=== PATIENT | female | born 1970 | race Caucasian/White ===

== ENCOUNTER 2020-06-27 12:42 | Emergency (ER) | payer OTHER, BC ==
[~2020-06-27] VITALS: Ht 167.6 cm; Wt 106.6 kg
[~2020-06-27 12:42] MED LIST: ACYC800 PO; ATOR10; CRUTCH3 USE; CRUTCH4 USE; GLUC500; HYDACE5 PO; IBUP600; IBUP600 PO; LEVSOD125; LEVSOD125 PO; MULVITA; NAPR550 PO; Nix Lice Treatm59 ML TOP; OXYACE5T PO; PROM25 PO; Pepcid20 MG PO; Pepcid40 MG PO; Permethrin60 GM TP; Prednisone10 MG PO; Prednisone20 MG PO; RANI150; RXNAPNA550 PO; ZESTORETIC 20-121 EA; Zofran8 MG PO
== END 2020-06-27 14:30 | disposition home or self-care (01) ==
LOC: ER 12:42
DX: S16.1XXA Strain of muscle, fascia and tendon at neck level, initial encounter (principal); S09.90XA Unspecified injury of head, initial encounter; E03.9 Hypothyroidism, unspecified; Z87.891 Personal history of nicotine dependence; Z88.5 Allergy status to narcotic agent; Z79.899 Other long term (current) drug therapy; V49.40XA Driver injured in collision with unspecified motor vehicles in traffic accident, initial encounter; Y92.410 Unspecified street and highway as the place of occurrence of the external cause
CPT/HCPCS: 99284

== ENCOUNTER → 2020-08-22 | Outpatient (CLI) | payer OTHER, BC ==
[2020-08-24 14:15] LABS: CORONAVIRUS (COVID19) CSH-NRL Negative (Negative)
== END | disposition home or self-care (01) ==
LOC: LAB SHORT 13:27
PROVIDERS: Chiropractor
DX: R06.00 Dyspnea, unspecified (principal); Z20.828 Contact with and (suspected) exposure to other viral communicable diseases
CPT/HCPCS: U0003

== ENCOUNTER 2022-09-05 16:20 | Emergency (ER) | payer OTHER, BC ==
[~2022-09-05] VITALS: Ht 167.6 cm; Wt 97.5 kg
== END 2022-09-05 20:16 | disposition home or self-care (01) ==
LOC: ER 16:20
DX: S01.21XA Laceration without foreign body of nose, initial encounter (principal); M25.531 Pain in right wrist; M79.642 Pain in left hand; E03.9 Hypothyroidism, unspecified; Z23 Encounter for immunization; Z87.891 Personal history of nicotine dependence; Z88.5 Allergy status to narcotic agent; Z79.899 Other long term (current) drug therapy; W01.0XXA Fall on same level from slipping, tripping and stumbling without subsequent striking against object, initial encounter
CPT/HCPCS: 73100; 73130; 90714; A9270

== ENCOUNTER 2023-04-06 11:02 | Emergency (ER) | payer OTHER, BC ==
[~2023-04-06] VITALS: Ht 167.6 cm; Wt 117.9 kg
[~2023-04-06 11:02] MED LIST changes: +ALBU90OI INH; +AMLO10 PO; +EUTHYROX125 MCG PO; +FURO20 PO; +LEVOTHYROXINE75 MC1 PO; -LEVSOD125; +LEVSOD150 PO; +LOSA25 PO
[2023-04-06 11:29] VITALS: BP 159/100
== END 2023-04-06 12:58 | disposition home or self-care (01) ==
LOC: ER 11:02
DX: S61.411A Laceration without foreign body of right hand, initial encounter (principal); I10 Essential (primary) hypertension; E03.9 Hypothyroidism, unspecified; Z79.899 Other long term (current) drug therapy; Z87.891 Personal history of nicotine dependence; W26.8XXA Contact with other sharp object(s), not elsewhere classified, initial encounter; Y92.89 Other specified places as the place of occurrence of the external cause; Y99.0 Civilian activity done for income or pay
CPT/HCPCS: 12002; 99282-25